=== PATIENT | female | born 1950 | race Caucasian/White ===

== ENCOUNTER 2019-11-30 12:05 | Outpatient (CLI) | payer MEDICARE ==
[2019-11-30] MEDS ORDERED: OMNIPAQUE 350 MG/ML, 100ML BOTTLE ONE (16:27)
== END 2019-11-30 23:59 | disposition home or self-care (01) ==
LOC: CFH 12:05
PROVIDERS: ATTEND Internal Medicine Hematology & Oncology
DX: Z51.11 Encounter for antineoplastic chemotherapy (principal); C18.2 Malignant neoplasm of ascending colon; D70.1 Agranulocytosis secondary to cancer chemotherapy; D50.0 Iron deficiency anemia secondary to blood loss (chronic); B37.0 Candidal stomatitis; R19.7 Diarrhea, unspecified
CPT/HCPCS: 71260; 74177; Q9967